=== PATIENT | male | born 1970 | race Caucasian/White ===

== ENCOUNTER 2023-02-13 16:18 | Emergency (ER) | payer OTHER, MEDICAID ==
[2023-02-14 17:45] VITALS: BP 135/95; PULSE 82
== END 2023-02-13 18:15 | disposition home or self-care (01) ==
LOC: KA.ED 16:18
DX: M25.572 Pain in left ankle and joints of left foot (principal); Z79.899 Other long term (current) drug therapy; V87.8XXA Person injured in other specified noncollision transport accidents involving motor vehicle (traffic), initial encounter; Y92.59 Other trade areas as the place of occurrence of the external cause; Y99.0 Civilian activity done for income or pay
CPT/HCPCS: 73610-LT; 99283

== ENCOUNTER 2023-03-14 08:47 | Day surgery (SDC) | payer BC, MEDICAID ==
[2023-03-14] MEDS ORDERED: Glycopyrrolate 0.2 MG/ML SDV IVPUSH ONE (08:48)
[2023-03-14] MEDS ORDERED: Midazolam 1 MG/ML 2 ML SDV IV ONE (08:48)
[2023-03-14] MEDS ORDERED: Propofol 200 MG/20 ML SDV IV ONE (08:48)
[2023-03-14] MEDS ORDERED: Sodium Chloride 0.9% 10 ML Syringe FLUSH PRN (09:00)
[2023-03-14] MEDS: Lactated Ringers 1,000 ML IV SCH (09:20)
[2023-03-14] MEDS ORDERED: Midazolam 1 MG/ML 2 ML SDV ONE ×2 (09:54→09:56)
[2023-03-14] MEDS ORDERED: Propofol 200 MG/20 ML SDV ONE ×2 (09:54→10:50)
[2023-03-14] MEDS ORDERED: Lidocaine 2% 5 ML SDV ONE (09:54)
[2023-03-14 14:46] VITALS: BP 109/74; PULSE 90
== END 2023-03-14 12:37 | disposition home or self-care (01) ==
LOC: KA.SDS 08:47
PROVIDERS: ATTEND Surgery
DX: D12.8 Benign neoplasm of rectum (principal); D12.3 Benign neoplasm of transverse colon; E66.01 Morbid (severe) obesity due to excess calories; F17.200 Nicotine dependence, unspecified, uncomplicated; Z98.84 Bariatric surgery status; Z79.899 Other long term (current) drug therapy; Z68.41 Body mass index [BMI] 40.0-44.9, adult
CPT/HCPCS: 00813; J2250; J2704; J3490; J7120